=== PATIENT | male | born 1990 | race Caucasian/White ===

== ENCOUNTER 2018-10-31 14:46 | Inpatient (IN) | payer OTHER ==
[2018-10-31] VITALS (7 sets, daily range): BP systolic 92–117; BP diastolic 58–74
[~2018-10-31] VITALS: Ht 172.7 cm; Wt 43.6 kg
[2018-10-31] MEDS ORDERED: NACL 0.9% 1,500 ML IV SCH (14:49)
[2018-10-31] MEDS ORDERED: IPRATROPIUM 0.02% 0.5 MG/2.5 ML NEBU INH ONE ×2 (14:50)
[2018-10-31] MEDS ORDERED: methylPREDNISolone SS 125 MG/2 ML VIAL IVP ONE (14:50)
[2018-10-31] MEDS ORDERED: GENTAMICIN 80 MG in DEXTROSE 5% 100 ML IV ONE (14:50)
[2018-10-31] MEDS ORDERED: CLINDAMYCIN 900 MG in DEXTROSE 5% 100 ML IV ONE (14:50)
[2018-10-31] MEDS ORDERED: PIPERACILLIN/TAZOBACTAM 3.375 GM in DEXT 5% MINI-BAG PLUS 50 ML IV ONE (14:50)
[2018-10-31] MEDS ORDERED: ALBUTEROL 0.083% 2.5 MG/3 ML NEBU INH ONE ×2 (14:50)
--- NOTE | 2018-10-31 15:00 | NUR ---
28 yo male bib ems from [facility] for [place] sat on trach. Patient is aao but ventilated. PERRLA to bl eyes. Pulse ox on arrival is 94%. Patient able to verbalize commands. RR are even and tachypneic. Abd is soft and non tender. GT noted to abd. Dressing clean and no discharge. NAD. RT and er md fower by bedside.
[2018-10-31 15:23] LABS: BASOPHILS % (AUTO) 0.2 % (0.0-2.0); EOSINOPHILS # (AUTO) 0.3 K/uL (0-0.4); HEMOGLOBIN 11.3 g/dL (12.0-18.0); LYMPHOCYTES # (AUTO) 0.5 K/uL (2.0-11.5); LYMPHOCYTES % (AUTO) 4.7 % (20.5-51.1); MEAN CORPUSCULAR HEMOGLOBIN 27 pg (27-31); MEAN CORPUSCULAR HGB CONC 31 g/dL (33-37); MEAN CORPUSCULAR VOLUME 88.6 fL (80-94); MONOCYTES # (AUTO) 0.4 K/uL (0.8-1.0); MONOCYTES % (AUTO) 3.9 % (1.7-9.3); NEUTROPHILS # (AUTO) 8.5 K/uL (1.8-7.7); NEUTROPHILS % (AUTO) 88.2 % (42.2-75.2); PLATELET COUNT (AUTO) 226 K/uL (140-450); RED BLOOD CELL COUNT(AUTO) 4.17 MIL/uL (4.20-6.10); RED CELL DISTRIBUTION WIDTH 14.7 % (11.6-13.7); WHITE BLOOD COUNT (AUTO) 9.7 K/uL (4.8-10.8)
[2018-10-31] MEDS ORDERED: CLINDAMYCIN 900 MG/6 ML VIAL IV ONE (15:36)
[2018-10-31] MEDS ORDERED: PIPERACILLIN/TAZOBACTAM 3.375 GM VIAL IV ONE (15:36)
[2018-10-31] MEDS ORDERED: GENTAMICIN 80 MG/2 ML VIAL ONE (15:37)
[2018-10-31 15:39] LABS: ALBUMIN 3.4 g/dL (3.4-5.0); CREATININE 0.7 mg/dL (0.7-1.3); POTASSIUM 5.2 mmol/L (3.5-5.1); TOTAL BILIRUBIN 0.2 mg/dL (0.0-1.0)
[2018-10-31] MEDS ORDERED: CITA40TA13 GT (15:44)
[2018-10-31] MEDS ORDERED: ALPR0.252 GT (15:44)
[2018-10-31] MEDS ORDERED: SENN-73 GT (15:44)
[2018-10-31] MEDS ORDERED: BISA10SU RC (15:44)
[2018-10-31] MEDS ORDERED: MAGN400S60 GT (15:44)
[2018-10-31] MEDS ORDERED: POLY15SO48 OP (15:44)
[2018-10-31] MEDS ORDERED: ATRN INH (15:44)
[2018-10-31] MEDS ORDERED: MULT15LI1 GT (15:44)
[2018-10-31] MEDS ORDERED: LORA10TA19 GT (15:44)
[2018-10-31] MEDS ORDERED: BISO5TAB2 GT (15:44)
[2018-10-31] MEDS ORDERED: LEVA1.2523 IH (15:44)
[2018-10-31] MEDS ORDERED: NA P135N RC (15:44)
[2018-10-31] MEDS ORDERED: FAMO-90 GT (15:44)
[2018-10-31] MEDS ORDERED: ACET-2619 GT (15:44)
--- NOTE | 2018-10-31 15:45 | NUR ---
PER SPOUSE PATIENT DOES NOT TOLERATED ALBUTEROL VERY WELL DUE TO ADVERSE REACTIONS OF ANXIETY NERVOUSNESS AND INCREASED HEART PALPATATION REVIEWED WITH DR ROXANNA DALTON NO NEW ORDERS
[2018-10-31 16:10] LABS: ANION GAP 0.4 (8-16)
[2018-10-31 16:20] LABS: CARBON DIOXIDE 44.8 mmol/L (21-32)
--- NOTE | 2018-10-31 16:32 | NUR ---
rt by bedside
--- NOTE | 2018-10-31 17:15 | NUR ---
ivf running w/o difficultly. patient with no complaints. nad. will continue to monitor.
[2018-10-31] MEDS ORDERED: ONDANSETRON 4 MG/2 ML VIAL IM/IVP PRN (17:20)
[2018-10-31] MEDS ORDERED: ACETAMINOPHEN 325 MG TAB PO PRN (17:20)
[2018-10-31] MEDS ORDERED: LORazepam 2 MG/ML VIAL IM/IVP PRN (17:20)
[2018-10-31] MEDS ORDERED: MORPHINE SULFATE 2 MG/ML SYR IVP PRN (17:20)
[2018-10-31] MEDS ORDERED: DOCUSATE SODIUM 100 MG GELCAP PO PRN (17:20)
[2018-10-31] MEDS ORDERED: HYDROcodone/APAP 5/325 MG 1 TAB TAB PO PRN (17:20)
[2018-10-31 17:52] LABS: MAGNESIUM 2.1 mg/dL (1.8-2.4); PHOSPHORUS 5.8 mg/dL (2.5-4.9); THYROID STIMULATING HORMONE 1.34 uIU/mL (0.34-3.74)
[2018-10-31 18:10] LABS: PROTHROMBIN TIME 11.1 secs (10.8-13.4)
--- NOTE | 2018-10-31 18:20 | NUR ---
Patient will be admitted to care of [facility]. Admited to Tele. Will go to room ICU-1. Belongings list completed. Bedside report to David OTERO.
--- NOTE | 2018-10-31 18:23 | NUR ---
RECEIVED PT FROM ER. PT A/O X3. ABLE TO MAKE NEEDS KNOWN. SKIN DRY AND WARM TO TOUCH. TRACH TO VENT AC 20 FIO2 35%, TV 450 PEEP 5. LUNGS WHEEZING B/L. PERIPHERAL LINES ON RFA 20G AND LEFT HAND 24 G. INTACT. FLUSHED. ABDOMEN SOFT, ROUND AND NON-TENDER. ACTIVE BOWEL SOUND. BLANCHABLE REDNESS NO SACROCOCCYX AREA. SKIN INTACT. ON DIAPER, WET. REFUSED MATA CATHETER. DR. SUAREZ AWARE. KEPT HOB ELEVATED. BED IN LOW POSITION, LOCKED. WILL CONTINUE TO MONITOR.
--- NOTE | 2018-10-31 18:29 | NUR ---
PATIENT TRANSFERRED FROM ER TO ICU BED 1 VIA AMBU 100% AND PLACED BACK ON CURRENT VENT SETTING AC-20,450, +5, FIO2-35%. NO SIGNS OF RESP. DISTRESS
[2018-10-31] MEDS: ALBUTEROL SULFATE/IPRATROPIU 3 ML SOL IH SCH (19:09)
--- NOTE | 2018-10-31 19:13 | NUR ---
REPORT GIVEN TO HAND WOOD SANDER RN FOR CONTINUITY OF CARE.
--- NOTE | 2018-10-31 19:14 | NUR ---
DR. SUAREZ AND DR. BUSH AT BEDSIDE AT THIS TIME. WILL FOLLOW-UP WITH ANY NEW ORDERS.
--- NOTE | 2018-10-31 19:30 | NUR ---
RECEIVED REPORT FROM MORNING RN FOR CONTINUITY OF CARE. VS STABLE AT THIS TIME. PT AWAKE, ALERT, AND ORIENTED. ABLE TO MAKE NEEDS KNOWN. PT AFEBRILE. PT HAS AT BEDSIDE, LAKESHIA, AT THIS TIME. PERRL. LUNG SOUNDS AUSCULTATED AND WAS RHONCHI. NO SOB NOTED. TRACH TO VENT WITH SETTINGS AC20, FIO2 35%, TV 450, AND PEEP 5. S1+S2 HEARD. PULSES ARE PALPABLE IN ALL EXTREMITIES. SR TO ST ON MONITOR. DENIES CHEST PAIN. ABDOMEN ROUND, SOFT, AND NONDISTENDED. GTUBE IN PLACE. DRESSING INTACT. BS ACTIVE IN ALL QUADRANTS. PT ABLE TO FEEL URGE TO VOID. NO BM AT THIS TIME. RECEIVED PT WITH PERIPHERAL IV ACCESS ON LEFT HAND 24G AND RIGHT FOREARM 20G. RECEIVED PT WITH BOLUS RUNNING. PT'S BED AT LOWEST POSSIBLE POSITION. CALL LIGHT WITHIN REACH. WILL CONTINUE TO MONITOR PT.
[2018-10-31] MEDS ORDERED: SENNA 8.6 MG TAB GT PRN (19:35)
[2018-10-31] MEDS ORDERED: MAGNESIUM HYDROXIDE 2400 MG/30 ML UDC GT PRN (19:35)
[2018-10-31] MEDS ORDERED: BISACODYL 10 MG SUPP RC PRN (19:35)
[2018-10-31] MEDS ORDERED: SODIUM PHOSPHATE 118 ML ENEM RC PRN (19:35)
[2018-10-31] MEDS: NACL 0.9% 1,000 ML IV SCH (19:45)
[2018-10-31] MEDS: ALPRAZolam 0.25 MG TAB GT PRN (19:54)
[2018-10-31] MEDS: FAMOTIDINE 20 MG TAB GT SCH (20:50)
[2018-10-31] MEDS: acetaZOLAMIDE 250 MG TAB GT SCH (20:51)
[2018-10-31] MEDS ORDERED: acetaZOLAMIDE 250 MG TAB ONE (20:52)
--- NOTE | 2018-10-31 21:30 | NUR ---
PT STARTED ON TUBE FEEDING OF JEVITY 1.2 AT 20ML/HR PER ORDER.
--- NOTE | 2018-10-31 21:40 | NUR ---
CONDOM CATHETER PLACED ON PT PER DR. SUAREZ'S ORDER. PT TOLERATED IT WELL. SECURED IN PLACE. NO LEAKAGE NOTED.
[2018-10-31] MEDS ORDERED: CALCIUM ACETATE 667 MG TAB GT SCH (22:00)
[2018-10-31] MEDS ORDERED: METOPROLOL SUCCINATE 50 MG TABER PO SCH (22:00)
[2018-10-31] MEDS ORDERED: cefTRIAXone 1,000 MG VIAL ONE (22:53)
--- NOTE | 2018-10-31 23:15 | NUR ---
NO CHANGE IN PT'S CONDITION AT THIS TIME. , LAKESHIA, STILL AT BEDSIDE. VS STABLE. SR ON MONITOR. PT DENIES OF ANY DISCOMFORT AT THIS TIME. PT DENIES PAIN. AL SAFETY PRECAUTIONS ARE KEPT IN PLACE. CONDOM CATHETER WORKING WELL.
[2018-10-31] MEDS: SODIUM POLYSTYRENE 15 GM/60 ML UDBTL GT SCH (23:28)
[2018-11-01] VITALS (17 sets, daily range): BP systolic 95–118; BP diastolic 58–74
--- NOTE | 2018-11-01 00:54 | NUR ---
CONDOM CATH NOTED TO BE LEAKING, CHANGED TO A SIZE SMALL AND WILL OBSERVE IF THERE WILL BE LEAKAGE.
--- NOTE | 2018-11-01 02:10 | NUR ---
VS STABLE. SR ON MONITOR. NO CHANGE IN PT'S CONDITION. TRACH TO VENT WITH ADEQUATE OXYGENATION EVIDENCED BY STABLE OXYGEN SATURATION THAT IS MORE THAN 92%. PT'S REMAINS AT BEDSIDE. PT HAS ADEQUATE URINARY OUTPUT.
--- NOTE | 2018-11-01 03:40 | NUR ---
URINE SPECIMEN WAS COLLECTED AND SENT TO THE LAB. PT DOES NOT APPEAR TO BE EXPERIENCING ANY DISCOMFORT AT THIS TIME. DENIES ANY PAIN.
--- NOTE | 2018-11-01 03:50 | NUR ---
FEEDING RATE INCREASED AT 30ML/HR. CURRENTLY NO RESIDUAL NOTED.
[2018-11-01 03:54] LABS: APPEARANCE,URINE CLEAR (CLEAR); BILIRUBIN,URINE NEGATIVE (NEGATIVE); BLOOD, URINE NEGATIVE (NEGATIVE); COLOR,URINE YELLOW (YELLOW); LEUKOCYTE ESTERASE ,URINE NEGATIVE (NEGATIVE); NITRITE, URINE NEGATIVE (NEGATIVE); PH,URINE 8.5 (5.0-9.0); UGLUCOSE NEGATIVE (NEGATIVE)
--- NOTE | 2018-11-01 04:20 | NUR ---
ORAL CARE PROVIDED TO PT. NO BM NOTED AT THIS TIME. ALL SAFETY PRECAUTIONS ARE IN PLACE. BED AT LOWEST POSSIBLE POSITION. NO RESIDUAL NOTED.
[2018-11-01] MEDS: methylPREDNISolone SS 125 MG/2 ML VIAL IVP SCH ×3 (04:35→20:39)
[2018-11-01 06:40] LABS: ANION GAP 3.7 (8-16); CHOL/HDL RATIO 2.3 (1-4.5); CREATININE 0.5 mg/dL (0.7-1.3); PHOSPHORUS 3.6 mg/dL (2.5-4.9); POTASSIUM 4.7 mmol/L (3.5-5.1)
[2018-11-01] MEDS: ALBUTEROL SULFATE/IPRATROPIU 3 ML SOL IH SCH ×3 (07:12→18:56)
[2018-11-01 07:13] LABS: BASOPHILS % (AUTO) 0.1 % (0.0-2.0); HEMATOCRIT 32.5 % (36-52); HEMOGLOBIN 9.9 g/dL (12.0-18.0); LYMPHOCYTES # (AUTO) 0.6 K/uL (2.0-11.5); LYMPHOCYTES % (AUTO) 8.3 % (20.5-51.1); MEAN CORPUSCULAR HEMOGLOBIN 27 pg (27-31); MEAN CORPUSCULAR HGB CONC 31 g/dL (33-37); MEAN CORPUSCULAR VOLUME 89.5 fL (80-94); MONOCYTES # (AUTO) 0.3 K/uL (0.8-1.0); MONOCYTES % (AUTO) 4.4 % (1.7-9.3); NEUTROPHILS # (AUTO) 6.2 K/uL (1.8-7.7); NEUTROPHILS % (AUTO) 87.2 % (42.2-75.2); PLATELET COUNT (AUTO) 199 K/uL (140-450); RED BLOOD CELL COUNT(AUTO) 3.63 MIL/uL (4.20-6.10); WHITE BLOOD COUNT (AUTO) 7.1 K/uL (4.8-10.8)
--- NOTE | 2018-11-01 07:21 | NUR ---
RECEIVED TRACH PT WITH A SHILEY 5 XLT TRACH ON VENT. SETTINGS AC 20, VT 450, PEEP 5 AND FIO2 35%. PT HAS HIS EYES CLOSED BUT RESPONDS TO QUESTIONING. FAMILY MEMBER IS BEDSIDE. PT NOT IN ANY DISTRESS AT THIS TIME. VENT IS PLUGGED INTO A RED OUTLET WITH ALARMS ON AND FUNCTIONING. WILL CONTINUE TO MONITOR.
--- NOTE | 2018-11-01 07:30 | NUR ---
RECEIVED BEDSIDE REPORT FROM SCREEN ROLLER RN. PT IS LETHARGIC, ALERT AND ORIENTED. ABLE TO MAKE NEEDS KNOWN AND FOLLOW COMMANDS. SR ON MONITOR. S1 S2 HEARD. TRACH TO VENT WITH SETTINGS: AC 20, FIO2 35%, TV 450 PEEP 5. LUNGS WHEEZING BILATERALLY. PERIPHERAL IVS G24 TO L HAND AND G20 TO RFA PATENT AND INTACT. PT RECEIVING IV FLUID NS AT 60 ML/HR. ABDOMEN SOFT, NONTENDER, NON DISTENDED, GT IN PLACE. BOWEL SOUNDS ACTIVE X 4 QUADRANTS. PT RECEIVING TF JEVITY 1.2 AT 30 ML/HR. NO RESIDUALS, RATE INCREASED TO 40 ML/HR AT THIS TIME (GOAL IS 60ML/HR). CONDOM CATH IN PLACE DRAINING URINE TO GRAVITY. HOB 30 DEGREES, BED IN LOWEST POSITION LOCKED. CALL LIGHT WITHIN REACH. AT BEDSIDE. NO SIGNS OF DISTRESS NOTED AT THIS TIME. WILL CONTINUE TO MONITOR.
[2018-11-01] MEDS ORDERED: PROBIOTIC SCREEN 1 EA MISC MC PRN (07:40)
--- NOTE | 2018-11-01 07:45 | NUR ---
DR. GOEL AND RESIDENT GROUP IN TO SEE PT. WILL FOLLOW UP ON ORDERS.
--- NOTE | 2018-11-01 08:21 | NUR ---
PATIENT HAS BEEN SCREENED AND CATEGORIZED HIGH NUTRITION RISK. PATIENT WILL BE SEEN WITHIN 1-2 DAYS OF ADMISSION. 11/01/18-11/02/[address]
--- NOTE | 2018-11-01 08:55 | NUR ---
PT SEEN BY DR. HENLEY. WILL FOLLOW UP WITH ANY NEW ORDERS.
[2018-11-01] MEDS ORDERED: METOPROLOL 25 MG TAB GT SCH (09:00)
[2018-11-01] MEDS ORDERED: METOPROLOL SUCCINATE 50 MG TABER PO SCH (09:00)
[2018-11-01] MEDS: FAMOTIDINE 20 MG TAB GT SCH ×2 (09:03→20:38)
[2018-11-01] MEDS: CITALOPRAM 20 MG TAB GT SCH (09:03)
[2018-11-01] MEDS: LACTOBACILLUS RHAMNOSUS GG 1 EACH CAP PO SCH (09:03)
[2018-11-01] MEDS: acetaZOLAMIDE 250 MG TAB GT SCH ×2 (09:04→20:38)
--- NOTE | 2018-11-01 09:25 | NUR ---
BP 98/61, HR 88. HOLD LOPRESSOR PER DR. CASTANEDA.
--- NOTE | 2018-11-01 09:30 | NUR ---
MEDICATIONS ADMINISTERED ORDERED. PT TOLERATED WELL.
--- NOTE | 2018-11-01 09:39 | NUR ---
PT HAVING PHYSICAL THERAPY. FAMILY AT BEDSIDE. VSS. NO DISTRESS NOTED AT THIS TIME.
--- NOTE | 2018-11-01 11:02 | NUR ---
Electrode Turner And Finisher Note: Per Janell from [facility] , patient is on a 7 day bed hold and patient's Jessica Steven is his health care decision maker. I called and spoke with Jessica. Per Jessica, she would like patient to return to [facility] upon discharge.
--- NOTE | 2018-11-01 11:51 | NUR ---
PT PLACED ON PRVC inspTIME 0.80, VT 450, R 20, PEEP 5 AND FIO2 35% DUE TO INCREASED PEAK PRESSURES RANGING FROM LOW 50'S-MID 50'S. PT TOLERATING WELL WILL CONTINUE TO MONITOR.
[2018-11-01] MEDS: ALBUTEROL SULFATE/IPRATROPIU 3 ML SOL IH PRN (11:53)
--- NOTE | 2018-11-01 12:00 | NUR ---
VAP ORAL CARE GIVEN. REPOSITIONED FOR COMFORT. PT ABLE TO HELP WITH REPOSITIONING. VSS. WILL CONTINUE TO MONITOR.
[2018-11-01] MEDS: ALPRAZolam 0.25 MG TAB GT PRN ×3 (12:11→19:42)
[2018-11-01] MEDS: NACL 0.9% 1,000 ML IV SCH ×2 (12:12→17:15)
--- NOTE | 2018-11-01 12:49 | NUR ---
11/01/18 RD INITIAL ASSESSMENT COMPLETED PLEASE REFER TO NUTRITION ASSESSMENT UNDER CARE ACTIVITY FOR ESTIMATED NUTRITIONAL NEEDS. 1. RECOMMEND JEVITY 1.2 @ 70 ML/HR - THIS WILL PROVIDE 2016 KCALS, 93 G PROTEIN. THIS WILL MEET 96% OF ESTIMATED ENERGY NEEDS AND 100% OF ESTIMATED ENERGY NEEDS 2. RECOMMEND FLUSH [address] TO FOLLOW-UP 2-3 DAYS, HIGH RISK TAMARA PORTILLO RD
--- NOTE | 2018-11-01 13:10 | NUR ---
PT SEEN BY DR. FRANKLIN. WILL FOLLOW UP WITH NEW ORDERS.
--- NOTE | 2018-11-01 14:19 | NUR ---
PT RETURNED TO AC 20, VT 450, PEEP 5 AND FIO2 35%, DUE TO PT NOT TOLERATING PRVC PT STATING IT IS HARD TO BREATHE. WILL CONTINUE TO MONITOR.
[2018-11-01] MEDS ORDERED: DOCUSATE 100 MG/10 ML UDC GT PRN (14:54)
--- NOTE | 2018-11-01 16:00 | NUR ---
PT REFUSED ORAL CARE AT THIS TIME. FAMILY MEMBER AT BEDSIDE.
--- NOTE | 2018-11-01 16:26 | NUR ---
PEAK PRESSURES HAVE DECREASED. PT SUCTIONED OBTAINED SMALL AMOUNT OF THICK BLOODY SECRETIONS, AIRWAY IS PATENT AND TRACH IS SECURE. PT IS NOT IN ANY DISTRESS AT THIS TIME. WILL CONTINUE TO MONITOR.
--- NOTE | 2018-11-01 17:21 | NUR ---
NO CHANGE IN CONDITION AT THIS TIME. VSS. PT REFUSED PM CARE AND BED BATH. FAMILY AT BEDSIDE. SAFETY PRECAUTIONS IN PLACE. WILL CONTINUE TO MONITOR.
--- NOTE | 2018-11-01 17:49 | NUR ---
PT REMAINS ON DOCUMENTED VENT SETTINGS. PT AWAKE ALERT IN BED NOT IN ANY DISTRESS. VENT ALARMS REMAIN ON AND FUNCTIONING. TRACH REMAINS SECURE WITH A PATENT AIRWAY.
--- NOTE | 2018-11-01 19:06 | NUR ---
Received pt stable on vent support at documented settings, suctioned small amounts of thick blood tinged secretions,hhn tx given, tolerated well, no resp distress or SOB noted at this time, Shiley 5 XLT secured/patent/midline, alarms set and audible, ambu bag at bedside, vent plugged into red outlet, pulse ox on, will cont to monitor.
--- NOTE | 2018-11-01 19:18 | NUR ---
REPORT GIVEN TO LONGWALL SHEARER OPERATOR NURSE FOR CONTINUITY OF CARE. PT IS IN STABLE CONDITION.
--- NOTE | 2018-11-01 19:20 | NUR ---
RECEIVED BEDSIDE REPORT FROM MORNING SHIFT RN, FREDDIE, FOR CONTINUITY OF CARE. AFEBRILE, TEMP 98.5, AAOX4, ABLE TO RESPOND TO COMMANDS. WU=567/88, HR=96, SATING 100%, RR=19. APPEARS LETHARGIC, PT ON TRACH TO VENT, FIO2=35, ZR=299, RR=20, FLOW=30L/MIN, PEEP=5, PMAX =65. LUNG SOUND CLEAR ON UPPER/LOWER BILATERAL LOBES. GT IN TACT, TUBE FEEDING JEVITY 1.2 AT 70CC/HR.BOWEL SOUNDS ACTIVE X4, NO RESIDUAL. CONDOM CATH IN PLACE TO DRAINAGE BAG. URINE IS CLEAR/YELLOW. , LEFT HAND 24 GAUGE, SALINE FLUSHED. RIGHT FA 20 GAUGE, INFUSING NS AT 60CC/HR. SKIN IS INTACT, NORMAL IN COLOR, NO SIGNS OF EDEMA. SKIN WARM TO TOUCH. PT DENIES PAIN/NAUSEA. STANDARD/FALL RISK PRECAUTIONS MAINTAINED, HOB ELEVATED, SIDE RAILS UP X2. FAMILY MEMBER AT BEDSIDE.
--- NOTE | 2018-11-01 19:50 | NUR ---
FO=[id number], ST ON ASSISTANT FOREMAN. XANAX GIVEN PER PT REQUEST, FAMILY MEMBER AT BEDSIDE. PT REFUSES ORAL CARE AT THIS TIME.
--- NOTE | 2018-11-01 20:40 | NUR ---
, LAKESHIA AT BEDSIDE, CONSENT FORM SIGNED.
[2018-11-01] MEDS: SODIUM POLYSTYRENE 15 GM/60 ML UDBTL GT SCH (21:28)
--- NOTE | 2018-11-01 21:29 | NUR ---
CALLLED DR. SUAREZ AT 8440. UPDATED POTASSIUM = 4.7, TO HOLD KAKAYKAYXALATE PER . WILL CARRY OUT.
--- NOTE | 2018-11-01 23:20 | NUR ---
PT SLEEPING, EASY TO AROUSE. APPEARS WITHOUT DISTRESS, PT DENIES PAIN/NAUSEA. VAP ORAL CARE PROVIDED. PILLOW SUPPORT ON BONY PROMINENCES, SCDS ON BILATERAL LEGS. AT BEDSIDE.
[2018-11-02] VITALS (18 sets, daily range): BP systolic 107–132; BP diastolic 67–84
--- NOTE | 2018-11-02 01:40 | NUR ---
CALLED RT KENYA, AT BEDSIDE TO ASSESS PT/VENTILATOR ALARMS. PT IS IN STABLE CONDITION AT THIS TIME.
--- NOTE | 2018-11-02 02:58 | NUR ---
RT KENYA AT BEDSIDE, PROVIDED X1 SUCTIONING TO PT. MINIMAL SECRETIONS NOTED, VSS.
[2018-11-02] MEDS: methylPREDNISolone SS 40 MG/ML VIAL IVP SCH ×3 (04:51→20:17)
--- NOTE | 2018-11-02 05:10 | NUR ---
RT KENYA AT BEDSIDE, CHANGED TRACH DRESSING. ORAL CARE PROVIDED, DENIES PAIN AND DOES NOT WANT TO MORNING CARES AT THIS TIME.
[2018-11-02 05:32] LABS: MAGNESIUM 2.1 mg/dL (1.8-2.4); PHOSPHORUS 3.1 mg/dL (2.5-4.9)
[2018-11-02 06:02] LABS: ANION GAP 10.8 (8-16); CARBON DIOXIDE 30.5 mmol/L (21-32); CREATININE 0.5 mg/dL (0.7-1.3); POTASSIUM 4.3 mmol/L (3.5-5.1)
[2018-11-02] MEDS: ALBUTEROL SULFATE/IPRATROPIU 3 ML SOL IH SCH ×3 (06:27→19:03)
--- NOTE | 2018-11-02 06:27 | NUR ---
rec'd pt on carescape vent settings ac 20 vt 450 peep 5 fio2 35% alarms on and audible and ambu bag at side of vent and vent is plugged into red outlet, no hhn given due to pt sleeping with no signs of distress noted at this time, b\s are diminished, pt is trach with shiley xlt 5 and skin integrity is intact, snx pt small amt of white secretions, family at bedside
[2018-11-02 06:32] LABS: HEMOGLOBIN 9.9 g/dL (12.0-18.0); LYMPHOCYTES # (AUTO) 0.4 K/uL (2.0-11.5); LYMPHOCYTES % (AUTO) 6.5 % (20.5-51.1); MEAN CORPUSCULAR HEMOGLOBIN 27 pg (27-31); MEAN CORPUSCULAR HGB CONC 31 g/dL (33-37); MONOCYTES # (AUTO) 0.4 K/uL (0.8-1.0); MONOCYTES % (AUTO) 5.5 % (1.7-9.3); NEUTROPHILS # (AUTO) 5.9 K/uL (1.8-7.7); PLATELET COUNT (AUTO) 182 K/uL (140-450); RED BLOOD CELL COUNT(AUTO) 3.64 MIL/uL (4.20-6.10); WHITE BLOOD COUNT (AUTO) 6.7 K/uL (4.8-10.8)
--- NOTE | 2018-11-02 06:40 | NUR ---
DR. CASTANEDA AT BEDSIDE TO SEE PATIENT/ AT BEDSIDE.
--- NOTE | 2018-11-02 07:15 | NUR ---
PROVIDED BEDSIDE REPORT TO MORNING SHIFT RNREA, FOR CONTINUITY OF CARE.
--- NOTE | 2018-11-02 07:16 | NUR ---
RECEIVED REPORT FROM NICOLETTE OTERO
--- NOTE | 2018-11-02 08:00 | NUR ---
PATIENT AWAKE, ALERT ORIENTED. WITH TRACHEOSTOMY TO VENTILATOR FIO2 35% TIDAL VOLUME 450 AC 20 PEEP 5 SO2 99%, CLEAR BREATH SOUNDS ON ALL LUNG SOTO, SINUS RHYTHM ON MONITOR 95 BPM, WITH PEG TUBE AND CLAMPED, SOFT ABDOMEN, CONDOM CATHETER, CLEAR YELLOW URINE NOTED, SKIN INTACT, PERIPHERAL LINES GAUGE 20 RIGHT FOREARM WITH NORMAL SALINE INFUSING 60ML/HR., GAUGE 24 LEFT HAND-SALINE LOCKED AND BOTH SITES ASYMPTOMATIC
--- NOTE | 2018-11-02 08:20 | NUR ---
CALLED DR. CASTANEDA SHE SAID KEEP PATIENT NPO EXCEPT MEDICATIONS. MAY GIVE PATIENTS MEDICATIONS PER GTUBE
--- NOTE | 2018-11-02 08:45 | NUR ---
PT AT BEDSIDE SITTING PATIENT AT EDGE OF BED Addendum: 11/02/18 at 1122 by Kiah Perry RN 0845 HOURS PHYSICAL THERAPIST AT BEDSIDE
[2018-11-02] MEDS: CITALOPRAM 20 MG TAB GT SCH (08:58)
[2018-11-02] MEDS: LACTOBACILLUS RHAMNOSUS GG 1 EACH CAP PO SCH (08:58)
[2018-11-02] MEDS: FAMOTIDINE 20 MG TAB GT SCH ×2 (08:59→20:17)
[2018-11-02] MEDS: METOPROLOL SUCCINATE 50 MG TABER PO SCH (08:59)
[2018-11-02] MEDS: acetaZOLAMIDE 250 MG TAB GT SCH ×2 (09:00→20:17)
--- NOTE | 2018-11-02 09:11 | NUR ---
CM NOTE RECEIVED ORDER TO TRANSFER FOR HIGHER LEVEL OF CARE TO [facility]. SPOKE WITH DELANEY OF [facility] PH# [phone] WHO REQUESTED FOR FACESHEET, ORDER TO TRANSFER FOR HIGHER LEVEL OF CARE AND CLINICAL PACKET BE FAXED TO HER FAX# [phone]. FAXED FACESHEET, ORDER TO TRANSFER FOR HIGHER LEVEL OF CARE AND CLINICAL PACKET TO [facility], ATTN: DELANEY.
--- NOTE | 2018-11-02 09:53 | NUR ---
CM NOTE PER DELANEY OF [facility]# [phone], NO BED AVAILABLE AT THIS TIME AND THEY HAVE PATIENTS IN THEIR ER WAITING FOR BEDS. PER DELANEY, THEY MIGHT HAVE A BED TONIGHT OR TOMORROW. DR. TONYA DOLL AND SHE SAID SHE WILL SEE IF OUR HOSPITAL CAN GET THE EQUIPMENT NEEDED FOR THE PROCEDURE.
--- NOTE | 2018-11-02 13:01 | NUR ---
CM NOTE PER DR. CASTANEDA, DR. FRANKLIN WILL DO THE NEEDED PROCEDURE FOR THE PATIENT IN OUR FACILITY AND SHE HAS CANCELLED THE ORDER TO TRANSFER FOR HIGHER LEVEL OF CARE. DELANEY OF [facility] AWARE.
[2018-11-02] MEDS ORDERED: LIDOCAINE 2% 1000 MG/50 ML VIAL INJ ONE (13:59)
[2018-11-02] MEDS: ALPRAZolam 0.25 MG TAB GT PRN (14:15)
--- NOTE | 2018-11-02 16:00 | NUR ---
DR. CASTANEDA HERE AND INFORMED PATIENT THAT THE PROCEDURE HAS BEEN POSTPONED TO TOMORROW ACCORDING TO DR. FRANKLIN AND JEVITY FEEDING MAY BE STARTED
--- NOTE | 2018-11-02 17:15 | NUR ---
SPONGE BATH DONE AFTER PATIENT HAD 1 BOWEL MOVEMENT FORMED BROWN IN SMALL AMOUNT. LOTION APPLIED TO PRESSURE/BONY AREAS, OPTIFOAM APPLIED TO BLANCHABLE REDNESS IN THE SACRUM. ORAL CARE AND REPOSITIONING DONE. ZERO GASTRIC RESIDUAL AND SO FEEDING STARTED VIA GTUBE ORDERED
--- NOTE | 2018-11-02 19:10 | NUR ---
RECEIVED BEDSIDE REPORT FROM MORNING SHIFT RNREA, FOR CONTINUITY FO CARE. AFEBRILE, TEMP 98.6, KE=339/68, SATING 99%, RR=12, SY=[phone]. PT IS AWAKE, AAOX4, PERRL, ABLE TO MAKE NEEDS KNOWN. SR ON MONITOR, TRACH TO VENT. FIO2=35, CX=092, RR=20, FLOW = 30L/MIN, PEEP=5, PMAX=60. BOWEL SOUND ACTIVE X4, GTUBE IN PLACE, TUBE FEEDING JEVITY 1.2 AT 70ML/HR. LAST BM DURING AFTERNOON PREVIOUS SHIFT. LEFT HAND 24 GUAGE PIV, RIGHT FOREARM 20 GUAGE INFUSING NS AT 60CC/HR. PT JOVAN PAIN/NAUSE/NUBMNESS/TINGLING. CONDOM CATH IN PLACE TO MATA BAG, URINE IS CLEAR/YELLOW. OPTIFORM DRESSING ON SACRALCOCCYX, BLANCHABLE REDNESS PER REA OTERO. HOB ELEVATED ABOVE 30 DEG, PILLOW SUPPORT ON BONY PROMINENCES, SCDS ON BILATERAL LEGS, STANDARD, FALL, AND ASPIRATION PRECAUTIONS MAINTAINED. FAMILY AT BEDSIDE.
--- NOTE | 2018-11-02 19:11 | NUR ---
Received pt stable on vent support at documented settings, hhn tx given, tolerated well, no resp distress or SOB noted at this time, family at bedside, Shiley 5 XLT trach secured/patent/midline, alarms set and audible, ambu bag bedside, vent plugged into red outlet, cont pulse ox on, will cont to monitor.
--- NOTE | 2018-11-02 19:13 | NUR ---
REPORT GIVEN TO NIGHT RN
--- NOTE | 2018-11-02 20:10 | NUR ---
PT REFUSES VAP ORAL CARE AND REPOSITIONING AT THIS TIME.
--- NOTE | 2018-11-02 21:00 | NUR ---
AT BEDSIDE TO SEE PATIENT.
[2018-11-02] MEDS: SODIUM POLYSTYRENE 15 GM/60 ML UDBTL GT SCH (22:00)
--- NOTE | 2018-11-02 22:30 | NUR ---
SMALL BOWEL MOVEMENT, FORMED, BROWN IN COLOR. SACRAL COCCYX OPTIFORM DRESSING REMAINS INTACT. DENIES PAIN/NAUSEA. TUBE FEEDING AT 70CC/HR, NS AT 60CC/HR. AT BEDSIDE. REPOSITIONED PT IN BED, PILLOWS AND SCDS ON BILATERAL LEGS. HOB ELEVATED ABOVE 30 DEG.
[2018-11-02] MEDS: NACL 0.9% 1,000 ML IV SCH (22:40)
--- NOTE | 2018-11-02 23:26 | NUR ---
HELD KAYEXALATE DUE TO POTASSIUM WITHIN NORMAL RANGE, DR SUAREZ MADE AWARE.
[2018-11-03] VITALS (18 sets, daily range): BP systolic 94–138; BP diastolic 50–92
--- NOTE | 2018-11-03 00:01 | NUR ---
PT NPO AFTER MIDNIGHT, TUBE FEEDINGS TURNED OFF.
--- NOTE | 2018-11-03 00:30 | NUR ---
BOWEL MOVEMENT, LARGE, BROWN FORMED. PT ABLE TO ASSIST IN REPOSITIONING SELF IN BED. REFUSED BED BATH AT THIS TIME. VAP ORAL CARE PROVIDED TO PT AT BEDSIDE. TOLERATED WELL. DENIES PAIN, VSS.
--- NOTE | 2018-11-03 01:30 | NUR ---
PER DR. KIM WHO IS COVERING FOR DR. CASTANEDA. MAY RESTART TUBE FEEDING ORDERED. ICU CN AWARE. NO RESIDUALS ON ASPIRATION FROM PATIENT'S PEG TUBE. NORMAL BOWEL SOUNDS ON AUSCULTATION. JEVITY RESTARTED ORDERED Addendum: 11/03/18 at 1544 by Kiah Perry RN DISREGARD ABOVE NOTE. CHARTED ON THE WRONG TIME
--- NOTE | 2018-11-03 03:03 | NUR ---
RT KENYA AT BEDSIDE TO SEE PATIENT. PT SLEEPING, FLACC=0. AT BEDSIDE. NS AT 60CC/HR.
--- NOTE | 2018-11-03 04:35 | NUR ---
SLEEING, YET EASY TO AROUSE. PT REFUSES ORAL CARE AND BED BATH AT THIS TIME. DENIES BM.
--- NOTE | 2018-11-03 05:25 | NUR ---
PT CONTINUES TO REFUSE ORAL CARES, BED BATH, LINEN CHANGE. SPOKE WITH PT AND AT BEDSIDE REGARDING IF THEY HAD AN ADVANCE DIRECTIVE OR A "LIVING WILL." DENIES EVER HAVING HAD ONE.
--- NOTE | 2018-11-03 05:42 | NUR ---
URINE OUTPUT 1200ML, Q SHIFT. URINE IS YELLOW IN COLOR, WITHOUT SEDIMENT, NORMAL ODOR. PT DOES NOT WANT TO BE REPOSITIONED A THIS TIME, PILLOW SUPPORT PROVIDED AND OPTIFORM DRESSING ON SACRAL COCCYX REMAINS INTACT.
[2018-11-03 05:55] LABS: ANION GAP 8.6 (8-16); CARBON DIOXIDE 31.6 mmol/L (21-32); CREATININE 0.5 mg/dL (0.7-1.3); POTASSIUM 4.2 mmol/L (3.5-5.1)
[2018-11-03 05:59] LABS: HEMOGLOBIN 10.8 g/dL (12.0-18.0); LYMPHOCYTES # (AUTO) 0.5 K/uL (2.0-11.5); MAGNESIUM 2.1 mg/dL (1.8-2.4); MONOCYTES # (AUTO) 0.6 K/uL (0.8-1.0); PHOSPHORUS 3.1 mg/dL (2.5-4.9); WHITE BLOOD COUNT (AUTO) 7.1 K/uL (4.8-10.8)
[2018-11-03 06:13] LABS: EOSINOPHILS % (AUTO) 0.1 % (0.0-4.0); HEMATOCRIT 35.2 % (36-52); LYMPHOCYTES % (AUTO) 7.6 % (20.5-51.1); MEAN CORPUSCULAR HEMOGLOBIN 27 pg (27-31); MEAN CORPUSCULAR HGB CONC 31 g/dL (33-37); MEAN CORPUSCULAR VOLUME 87.5 fL (80-94); MONOCYTES % (AUTO) 7.9 % (1.7-9.3); NEUTROPHILS % (AUTO) 84.4 % (42.2-75.2); PLATELET COUNT (AUTO) 182 K/uL (140-450); RED BLOOD CELL COUNT(AUTO) 4.02 MIL/uL (4.20-6.10); RED CELL DISTRIBUTION WIDTH 15.1 % (11.6-13.7)
[2018-11-03] MEDS: ALBUTEROL SULFATE/IPRATROPIU 3 ML SOL IH SCH ×3 (06:37→19:06)
--- NOTE | 2018-11-03 06:37 | NUR ---
RECEIVED PT ON CARESCAPE ON DOCUMENTED SETTINGS, PTS TRACH SHILEY 5 XLT IS SECURE , PATENT, PT IN HF ASLEEP BS DIMINISHED , AT BEDSIDE HHN GIVEN I\L WITH 3 MG DUONEB WITH NO ADVERSE REACTIONS NOTED, BMV HOB I\L SX SCANT AMTS SECRETIONS VENT PLUGGED INTO RED OUTLET
--- NOTE | 2018-11-03 07:17 | NUR ---
PROVIDED BEDSIDE REPORT TO MORNING SHIFT RNREA, FOR CONTINUITY OF CARE.
--- NOTE | 2018-11-03 07:18 | NUR ---
REPORT RECEIVED FROM NICOLETTE RN
--- NOTE | 2018-11-03 08:00 | NUR ---
PATIENT AWAKE, ALERT ORIENTED. WITH TRACHEOSTOMY SHILEY SIZE 5.0 HOOKED TO VENTILATOR FIO2 35% TIDAL VOLUME 450 AC 20 PEEP 5 SO2 99%, CLEAR BREATH SOUNDS ON ALL LUNG SOTO, SINUS TACHYCARDIA ON MONITOR 110 BPM, WITH PEG TUBE AND CLAMPED, SOFT ABDOMEN, CONDOM CATHETER, CLEAR YELLOW URINE NOTED, SKIN INTACT, PERIPHERAL LINES GAUGE 20 RIGHT FOREARM WITH NORMAL SALINE INFUSING 60ML/HR., GAUGE 24 LEFT HAND-SALINE LOCKED AND BOTH SITES ASYMPTOMATIC. CALL RHODES WITHIN REACH. AT BEDSIDE
[2018-11-03] MEDS: methylPREDNISolone SS 40 MG/ML VIAL IVP SCH (08:31)
[2018-11-03] MEDS: CITALOPRAM 20 MG TAB GT SCH (08:31)
[2018-11-03] MEDS: acetaZOLAMIDE 250 MG TAB GT SCH ×2 (08:32→21:18)
[2018-11-03] MEDS: LACTOBACILLUS RHAMNOSUS GG 1 EACH CAP PO SCH (08:32)
[2018-11-03] MEDS: FAMOTIDINE 20 MG TAB GT SCH ×2 (08:32→21:17)
[2018-11-03] MEDS: METOPROLOL SUCCINATE 50 MG TABER PO SCH (08:33)
--- NOTE | 2018-11-03 09:00 | NUR ---
PHYSICAL THERAPIST HERE AND PATIENT ABLE TO SIT AT THE EDGE OF THE BED WITH MODERATE ASSIST AND VITAL SIGNS STABLE. RN AND THERAPIST ENCOURAGED PATIENT TO STAND WITH THE HELP OF WALKER BUT PATIENT REFUSED MANY TIMES.
[2018-11-03] MEDS ORDERED: SEVOFLURANE 250 ML BTL INH ONE (10:45)
[2018-11-03] MEDS ORDERED: BUPIVACAINE-MPF 0.25% 30 ML VIAL INJ ONE (10:49)
[2018-11-03] MEDS ORDERED: MIDAZOLAM 2 MG/2 ML VIAL ONE (10:58)
[2018-11-03] MEDS ORDERED: fentaNYL 0.05 MG/ML VIAL ONE (10:59)
--- NOTE | 2018-11-03 11:10 | NUR ---
OR TEAM HERE AND TAKEN PATIENT TO SURGERY VIA ICU BED AND FABRICATION MACHINE OPERATOR, AMBU BAGGED BY RT
--- NOTE | 2018-11-03 11:37 | NUR ---
PT RETURNED FROM SURGERY. PLACED ON CARESCAPE WITH PREVIOUS SETTINGS .PORTEX [address] SECURED
--- NOTE | 2018-11-03 11:37 | NUR ---
PATIENT BACK FROM SURGERY WITH A NEW SIZE 7.0 TRACHEOSTOMY PORTEX. SITE LOOKS CLEAN. CONNECTED TO VENTILATOR BY RT WITH SAME SETTINGS, CONNECTED PATIENT TO ICU JINGLE WRITER. OR NURSE AWA AND ANESTHESIOLOGIST AT BEDSIDE
--- NOTE | 2018-11-03 12:00 | NUR ---
PATIENT STILL DROWSY FROM THE PROCEDURE. VITAL SIGNS STABLE. WILL CONTINUE TO MONITOR.
--- NOTE | 2018-11-03 13:30 | NUR ---
PER DR. KIM WHO IS COVERING FOR DR. CASTANEDA. MAY RESTART TUBE FEEDING ORDERED. ICU CN AWARE. NO RESIDUALS ON ASPIRATION FROM PATIENT'S PEG TUBE. NORMAL BOWEL SOUNDS ON AUSCULTATION. JEVITY RESTARTED ORDERED
[2018-11-03] MEDS ORDERED: FOAM DRESSING TP PRN (14:05)
[2018-11-03] MEDS: NACL 0.9% 1,000 ML IV SCH (15:30)
--- NOTE | 2018-11-03 16:30 | NUR ---
PATIENT NOW MORE AWAKE, REMAINS CALM. VENTILATOR WAS ALARMING CIRCUIT LEAK, HIGH AND LOW TIDAL VOLUMES. PATIENT SO2 REMAINS>95% NO ORAL AND TRACHEAL SECRETIONS. RT ELIZA AWARE AND AT BEDSIDE. NOTED SOME AIR LEAKING AT LOWER PART OF TRACHEAL STOMA. DR. KIM HERE AND MADE AWARE OF THE SITUATION. CONTINUE TO MONITOR PER PHYSICIAN
--- NOTE | 2018-11-03 16:50 | NUR ---
PM CARE RENDERED, SKIN INTACT, BLANCHABLE REDNESS IN THE SACRUM STILL PRESENT WITH OPTIFOAM DRESSING. PATIENT REFUSED GOWN AND LINEN CHANGE. ORAL CARE AND REPOSITIONING DONE. PATIENT TOLERATED
--- NOTE | 2018-11-03 17:50 | NUR ---
DR. HULL AT BEDSIDE MADE AWARE OF PATIENT'S BLOOD PRESSURE TRENDS. PATIENT CURRENTLY HAVING DINNER AT THIS TIME. SITTING AT THE EDGE OF THE BED Addendum: 11/03/18 at 1835 by Kiah Perry RN DISREGARD ABOVE NOTE. WRONG PATIENT
--- NOTE | 2018-11-03 19:15 | NUR ---
REPORT GIVEN TO NIGHT RN FOR CONTINUITY OF CARE
--- NOTE | 2018-11-03 19:20 | NUR ---
RECEIVED BEDSIDE REPORT FROM MORNING NURSE. PATIENT AAO X 4 BUT NON VERBAL DUE TO TRACH TO VENT WITH SETTING AC MODE FIO2 35%, VT 450, RATE 20, PEEP 5. TOLERATED WELL. BILATERAL LUNGS SOUND DIMINISHED. NO ACUTE RESPIRATORY DISTRESS NOTED. SR TO ST ON THE MANAGER OF FINANCE. G TUBE TO FEEDING WITH JEVITY 1.2 70ML WITH H2O FLUSH 110ML Q4HR. PLACEMENT CHECKED, 20CC RESIDUAL NOTED. ACTIVE BOWEL SOUND FROM ALL 4 QUADS. SKIN IS WARM TO TOUCH AND INTACT. PERIPHERAL LINES TO LEFT HAND 24G RUNNING WITH NS 60ML/HR AND RIGHT FOREARM 20G SALINE LOCK NOTED. HOB ELEVATED 30 DEGREE, BED IN LOW POSITION. CALL LIGHT WITHIN REACH. WILL CONTINUE TO MONITOR. Addendum: 11/04/18 at 0009 by Colette Donato RN CONDOM CATH IN PLACE.
[2018-11-03] MEDS ORDERED: VANCOMYCIN PER PHARMACY MC PRN (20:30)
[2018-11-03] MEDS ORDERED: VANCOMYCIN HCL 750 MG in DEXTROSE 5% 250 ML IV ONE (20:50)
--- NOTE | 2018-11-03 21:10 | NUR ---
SPOKE WITH , STATED OK TO HOLD KAYEXALATE AND CONTACT ISOLATION ORDER FOR PRESUMED SPUTUM MRSA. WILL CONTINUE TO MONITOR. Addendum: 11/04/18 at 0009 by Colette Donato RN PATIENT REFUSED ORAL CARE.
[2018-11-03] MEDS ORDERED: VANCOMYCIN 1,000 MG VIAL ONE (21:23)
[2018-11-03] MEDS: ACETAMINOPHEN 325 MG TAB GT PRN (21:36)
--- NOTE | 2018-11-03 21:40 | NUR ---
ADMINISTERED SCHEDULED MEDICATIONS AND IV ABX AND ADMINISTERED TYLENOL FOR GENERALIZED ACHING PAIN 11/28. WILL CONTINUE TO MONITOR.
[2018-11-03] MEDS: SODIUM POLYSTYRENE 15 GM/60 ML UDBTL GT SCH (22:00)
--- NOTE | 2018-11-03 23:00 | NUR ---
PATIENT IN ASLEEP AT THIS TIME. NO ACUTE DISTRESS NOTED. WILL CONTINUE TO MONITOR.
[2018-11-04] VITALS (14 sets, daily range): BP systolic 103–132; BP diastolic 65–88
--- NOTE | 2018-11-04 02:05 | NUR ---
PATIENT IN ASLEEP, AROUSABLE TO VOICE. NO ACUTE DISTRESS NOTED. DENIES PAIN AT THIS TIME. SR ON THE MONITOR. REFUSED CHANGE HIS POSITION AT THIS TIME. WILL CONTINUE TO MONITOR.
--- NOTE | 2018-11-04 04:00 | NUR ---
PATIENT IN ASLEEP, AROUSABLE TO VOICE. NO ACUTE DISTRESS NOTED. DENIES PAIN. TOLERATED WELL WITH VENT SETTING AND TUBE FEEDING. RESIDUAL CHECKED, 30CC NOTED. WILL CONTINUE TO MONITOR. Addendum: 11/04/18 at 0641 by Colette Donato RN REFUSED POSITION CHANGE AND MORNING CARE.
--- NOTE | 2018-11-04 06:00 | NUR ---
PATIENT IN SLEEP AT THIS TIME, AROUSABLE TO NAME. NO ACUTE DISTRESS NOTED. VSS. TOLERATED WELL WITH VENT AND G TUBE FEEDING. DENIES PAIN. REFUSED POSITION CHANGE AND MORNING BATH AT THIS TIME. WILL CONTINUE TO MONITOR.
[2018-11-04 06:17] LABS: CREATININE 0.4 mg/dL (0.7-1.3); PHOSPHORUS 3.2 mg/dL (2.5-4.9)
--- NOTE | 2018-11-04 06:30 | NUR ---
DR CASTANEDA IN THE UNIT.UPDATED ON PTS PRESENT CONDITION.QUESTIONS ANSWERED.MADE AWARE PT HAS BEEDN REFUSING ORAL CARE; MORNING CARE AND REPOSITIONING
[2018-11-04 06:31] LABS: BASOPHILS % (AUTO) 0.1 % (0.0-2.0); EOSINOPHILS # (AUTO) 0.1 K/uL (0-0.4); EOSINOPHILS % (AUTO) 0.8 % (0.0-4.0); HEMATOCRIT 35.3 % (36-52); LYMPHOCYTES # (AUTO) 0.8 K/uL (2.0-11.5); LYMPHOCYTES % (AUTO) 9.5 % (20.5-51.1); MEAN CORPUSCULAR HEMOGLOBIN 27 pg (27-31); MEAN CORPUSCULAR HGB CONC 31 g/dL (33-37); MEAN CORPUSCULAR VOLUME 87.3 fL (80-94); MONOCYTES # (AUTO) 1.3 K/uL (0.8-1.0); MONOCYTES % (AUTO) 14.9 % (1.7-9.3); NEUTROPHILS # (AUTO) 6.3 K/uL (1.8-7.7); NEUTROPHILS % (AUTO) 74.7 % (42.2-75.2); PLATELET COUNT (AUTO) 180 K/uL (140-450); RED BLOOD CELL COUNT(AUTO) 4.04 MIL/uL (4.20-6.10); WHITE BLOOD COUNT (AUTO) 8.5 K/uL (4.8-10.8)
--- NOTE | 2018-11-04 06:40 | NUR ---
PATIENT REFUSED ORAL CARE X3. VSS. SR ON THE MONITOR. IN BEDSIDE. WILL CONTINUE TO MONITOR.
[2018-11-04] MEDS: ALBUTEROL SULFATE/IPRATROPIU 3 ML SOL IH SCH ×3 (07:14→19:04)
[2018-11-04] MEDS: NACL 0.9% 1,000 ML IV SCH ×2 (07:29→23:45)
--- NOTE | 2018-11-04 07:30 | NUR ---
RECEIVED BEDSIDE REPORT FROM PM NURSE. PATIENT AWAKE, ALERT,ABLE TO FOLLOW COMMANDS. NON VERBAL .BEDSIDE MONITOR SHOWS SR TO ST (92 S-102 S ) TRACH TO VENT WITH SETTING AC MODE FIO2 35%, VT 450, RATE 20, PEEP 5. BILATERAL LUNGS SOUND DIMINISHED. NO ACUTE RESPIRATORY DISTRESS NOTED. G TUBE TO FEEDING WITH JEVITY 1.2 70ML WITH H2O FLUSH 110ML Q4HR. PLACEMENT CHECKED. PERIPHERAL LINES TO LEFT HAND 24G RUNNING WITH NS 60ML/HR AND RIGHT FOREARM 20G SALINE LOCK NOTED. ACTIVE BOWEL SOUND FROM ALL 4 QUADS. SKIN IS WARM TO TOUCH AND INTACT. REDNESS TO SACRAL AREA NOTED. ENCOURAGED PT TO MOVE EVERY TWO HOURS, INTRODUCED MYSELF, POC EXPLAINED TO PT. AT BEDSIDE, HOB ELEVATED 30 DEGREE, BED IN LOW POSITION. CALL LIGHT WITHIN REACH. WILL CONTINUE TO MONITOR.
--- NOTE | 2018-11-04 07:35 | NUR ---
recived pt on vent with settings as charted breath sounds present bilat exp wheezes sxn pt with small amt off white secs trach secure ambu bag bedside vent plugged into red outlet will continue to monitor pt on vent
[2018-11-04] MEDS: FAMOTIDINE 20 MG TAB GT SCH ×2 (08:07→21:00)
[2018-11-04] MEDS: LACTOBACILLUS RHAMNOSUS GG 1 EACH CAP PO SCH (08:08)
[2018-11-04] MEDS: CITALOPRAM 20 MG TAB GT SCH (08:08)
[2018-11-04] MEDS: METOPROLOL SUCCINATE 50 MG TABER PO SCH (08:08)
[2018-11-04] MEDS: methylPREDNISolone SS 40 MG/ML VIAL IVP SCH (08:09)
--- NOTE | 2018-11-04 08:30 | NUR ---
offered pt oral care , sergio care and reposition, pt refused. at bedside, explained to pt he may have PNA if he refuse oral care. pt agreed to do it before noon.
--- NOTE | 2018-11-04 08:45 | NUR ---
P.T. NOTES PATIENT REFUSED TO HAVE P.T. IN SPITE OF SEVERAL ENCOURAGEMENTS WERE GIVEN. AT BEDSIDE AND AWARE OF HIS REFUSAL AND WAS APOLOGETIC FOR HIM NOT WANTING TO PARTICIPATE. HIS RN ANDRÉS WAS MADE AWARE. PLAN: WE'LL TRY ONE MORE TIME TOMORROW AND IF HE CONTINUES TO REFUSED, P.T. SERVICES WILL BE CANCELLED.
[2018-11-04] MEDS: VANCOMYCIN HCL 750 MG in DEXTROSE 5% 250 ML IV SCH ×2 (09:04→21:00)
[2018-11-04] MEDS: ALPRAZolam 0.25 MG TAB GT PRN (10:49)
--- NOTE | 2018-11-04 10:54 | NUR ---
xanax given as ordered. pt c/o anxiety, at bedside.
--- NOTE | 2018-11-04 14:16 | NUR ---
FAMILY AT BEDSIDE, BEDSIDE MONITOR SHOWS ST 102S, BP IN NORMAL RANGE, WILL CONTINUE TO MONITOR.
--- NOTE | 2018-11-04 15:06 | NUR ---
11/04/18 RD FOLLOW UP COMPLETED PLEASE REFER TO NUTRITION ASSESSMENT UNDER CARE ACTIVITY FOR ESTIMATED NUTRITIONAL NEEDS. RD RECOMMENDATIONS: 1. CONTINUE JEVITY 1.2 @ 70 ML/HR - THIS WILL PROVIDE 2016 KCALS, 93 G PROTEIN. THIS WILL MEET 96% OF ESTIMATED ENERGY NEEDS AND 100% OF ESTIMATED ENERGY NEEDS 2. CONTINUE FLUSH [address] TO FOLLOW-UP 2-3 DAYS, HIGH RISK TAMARA PORTILLO RD
--- NOTE | 2018-11-04 17:00 | NUR ---
TURNED AND REPOSITIONED PT. PT HAD BM, CLEANED PT. ORAL CARE GIVEN. FATHER AT BEDSIDE.
--- NOTE | 2018-11-04 17:10 | NUR ---
continued to monitor pt on vent with settings as charted breath sounds present bilat coarse sxn pt with min amt reddish secs vent pluggwed into red outlet ambubag at bedside
--- NOTE | 2018-11-04 19:11 | NUR ---
PATIENT REFUSED HHNTX. HE STATES IT MAKES HIS HEART PALPITATE
--- NOTE | 2018-11-04 19:30 | NUR ---
RECEIVED REPORT FROM MORNING RN, ANDRÉS, FOR CONTINUITY OF CARE. VS STABLE AT THIS TIME. PT ABLE TO MAKE NEEDS KNOWN AND FOLLOW COMMANDS. PT HAS FAMILY AT BEDSIDE. PERRL. DENIES ANY PAIN AT THIS TIME. LUNG SOUNDS DIMINISHED. TRACH TO VENT WITH SETTINGS: FIO2 3-%, TV 450, AC 20 AND PEEP 5. NO SIGNS OF RESPIRATORY DISTRESS NOTED. S1+S2 HEARD. SR TO ST ON MONITOR. PULSES ARE PALPABLE. ABDOMEN ROUND, SOFT AND NONDISTENDED. GTUBE IN PLACE CONNECTED TO FEEDING. NO RESIDUAL NOTED AT THIS TIME. CONDOM CATHETER IN PLACE. SCD IN PLACE. PT HAS PERIPHERAL IV ACCESS ON LEFT HAND 24G AND RIGHT FOREARM 20G. PT ON NS AT 60ML/HR. ALL SAFETY PRECAUTIONS ARE IN PLACE AT THIS TIME.
--- NOTE | 2018-11-04 20:40 | NUR ---
OFFERED ORAL CARE TO PT BUT REFUSED AT THIS TIME. PT ABLE TO SUCTION HIMSELF ORALLY. PT REFUSING TO BE REPOSITIONED WELL AND STATES HE DOES NOT NEED ANYTHING ELSE
--- NOTE | 2018-11-04 23:30 | NUR ---
NO RESIDUAL NOTED AT THIS TIME. NEW FEEDING SET IN PLACE. PT TOLERATING FEEDING WELL. ADEQUATE URINARY OUTPUT NOTED. CONDOM CATHETER STILL INTACT.
[2018-11-05] VITALS (18 sets, daily range): BP systolic 104–133; BP diastolic 60–88
--- NOTE | 2018-11-05 00:30 | NUR ---
NO CHANGE IT PT'S CONDITION AT THIS TIME. VS STABLE. SR TO ST ON MONITOR. RESPIRATIONS ARE EVEN AND UNLABORED. NO SIGNS OF SOB NOTED. PT DENIES BEING IN PAIN AT THIS TIME. PT HAS AT BEDSIDE AT THIS TIME.
--- NOTE | 2018-11-05 02:40 | NUR ---
PT STILL REFUSING TO BE REPOSITIONED AT THIS TIME. INFORMED REGARDING RISK AND BENEFITS BUT STILL REFUSES
--- NOTE | 2018-11-05 03:10 | NUR ---
PT DOES NOT APPEAR TO BE EXPERIENCING ANY DISCOMFORT AT THIS TIME. SR ON MONITOR. DENIES PAIN. ALL SAFETY PRECAUTIONS REMAINS IN PLACE.
[2018-11-05 05:58] LABS: EOSINOPHILS # (AUTO) 0.1 K/uL (0-0.4); EOSINOPHILS % (AUTO) 1.4 % (0.0-4.0); HEMATOCRIT 35.4 % (36-52); HEMOGLOBIN 11.2 g/dL (12.0-18.0); LYMPHOCYTES # (AUTO) 0.9 K/uL (2.0-11.5); LYMPHOCYTES % (AUTO) 11.5 % (20.5-51.1); MEAN CORPUSCULAR HEMOGLOBIN 27 pg (27-31); MEAN CORPUSCULAR HGB CONC 32 g/dL (33-37); MEAN CORPUSCULAR VOLUME 86.4 fL (80-94); MONOCYTES # (AUTO) 1.2 K/uL (0.8-1.0); MONOCYTES % (AUTO) 14.6 % (1.7-9.3); NEUTROPHILS # (AUTO) 5.8 K/uL (1.8-7.7); NEUTROPHILS % (AUTO) 72.5 % (42.2-75.2); PLATELET COUNT (AUTO) 187 K/uL (140-450); RED CELL DISTRIBUTION WIDTH 15.1 % (11.6-13.7)
--- NOTE | 2018-11-05 05:59 | NUR ---
OFFERED TO TURN AND REPOSITION ALONG WITH PM CARE. PT REFUSED ANYTHING TO BE DONE AT THIS TIME.
[2018-11-05 06:20] LABS: MAGNESIUM 1.9 mg/dL (1.8-2.4); PHOSPHORUS 3.1 mg/dL (2.5-4.9)
[2018-11-05] MEDS: ALBUTEROL SULFATE/IPRATROPIU 3 ML SOL IH SCH ×3 (07:09→18:49)
[2018-11-05] MEDS: ALPRAZolam 0.25 MG TAB GT PRN ×3 (07:10→23:06)
--- NOTE | 2018-11-05 07:19 | NUR ---
RECEIVED TRACH PT WITH A PORTEX 7 TRACH ON VENT. SETTINGS AC 20, VT 450, PEEP 5 AND FIO2 35%. PT IS AWAKE AND ALERT IN BED STATING HE IS ANXIOUS , NURSE BEDSIDE ADMINISTERING MEDS. IS BEDSIDE. TRACH IS SECURE WITH SUTURES STILL IN PLACE, AIRWAY IS PATENT. VENT IS PLUGGED INTO A RED OUTLET WITH ALARMS ON AND FUNCTIONING. WILL CONTINUE TO MONITOR.
[2018-11-05 07:23] LABS: ANION GAP 4.2 (8-16); CARBON DIOXIDE 35.6 mmol/L (21-32); CREATININE 0.4 mg/dL (0.7-1.3); POTASSIUM 3.8 mmol/L (3.5-5.1)
--- NOTE | 2018-11-05 07:30 | NUR ---
RECEIVED PATIENT ON BED AT THE BEDSIDE.TRACHE TO VENT WITH VENT SETTING FIO2=35 PERCENT,AC=20,PEEP=5,QS=518.NO CO PAIN NOR ANY DISCOMFORT.GTUBE WITH FEEDING JEVITY AT 70 ML/H.PT REFUSED TO BE TURNED,REFUSED ORAL CARE .PER LET HIM REST.
--- NOTE | 2018-11-05 07:40 | NUR ---
DR GOEL MADE ROUNDS AND UPDATED ABOUT PTS CONDITION ESPECIALLY REFUSAL TO TURN,SUCTION , ORAL CARE AND PHYSICAL THERAPIST PER RN LAST NIGHT .MD TALKED TO .UNABLE TO ASSESS SKIN AT THE BACK BECAUSE SAID DONT TURN PT IS SLEEPING LET HIM REST.TAUGHT THE IMPORTANCE OF TURNING ESPECIALLY TO PREVENT BEDSORE. VERBALIZED UNDERSTANDING.PT IS SLEEPING RIGHT NOW.
--- NOTE | 2018-11-05 08:00 | NUR ---
STATED DON'T TURN PATIENT .LET HIM SLEEP ,DON'T DO ORAL CARE .SHE JUST TOOK XANAX.INSTRUCTED THE IMPORTANCE OF TURNING ,ORAL CARE BUT REFUSED. VERBALIZED UNDERSTANDING
[2018-11-05] MEDS: METOPROLOL SUCCINATE 50 MG TABER PO SCH (09:33)
[2018-11-05] MEDS: FAMOTIDINE 20 MG TAB GT SCH ×2 (09:33→20:40)
[2018-11-05] MEDS: CITALOPRAM 20 MG TAB GT SCH (09:33)
[2018-11-05] MEDS: LACTOBACILLUS RHAMNOSUS GG 1 EACH CAP PO SCH (09:33)
[2018-11-05] MEDS: methylPREDNISolone SS 40 MG/ML VIAL IVP SCH (09:34)
--- NOTE | 2018-11-05 10:00 | NUR ---
PATIENT REFUSED THE FOLLOWING-REFUSED TO TURN ,ORAL CARE,TRACHE CARE.INSTRUCTED PATIENT THE IMPORTANCE OF TURNING TO PREVENT BEDSORE BUT PATIENT REFUSED TO TURN. AT THE BEDSIDE AND AWARE PATIENT REFUSED TO TURN.PT ALLOWED TO CHANGE GAUZE AT TRACHE SITE BUT REFUSED TO CLEAN.NO BLEEDING NOTED AT SITE BUT ONLY OLD BLOOD. Addendum: 11/05/18 at 1117 by Elena Mi RN RN SUTURES INTACT NO SIGNS OF INFECTION.
--- NOTE | 2018-11-05 12:00 | NUR ---
PT REFUSED TO BE TURNED BUT AGREED PILLOW TO BE REMOVED SO HE CAN BE ON BACK.PT REFUSED FOR SKIN TO BE ASSESSED ESPECIALLY AT THE BACK.INSTRUCTED PATIENT WITH AT THE BEDSIDE THE IMPORTANCE OF TURNING TO PREVENT BEDSORE.PT VERBALIZED UNDERSTANDING AND STILL DO NOT WANT TO BE TURNED.
--- NOTE | 2018-11-05 12:44 | NUR ---
CM NOTE FAXED CLINICAL PACKET INCLUDING MICROS TO [facility]: [place]
--- NOTE | 2018-11-05 13:54 | NUR ---
PT IN BED WATCHING TV NOT IN ANY DISTRESS. FAMILY IS BEDSIDE. WILL CONTINUE TO MONITOR.
--- NOTE | 2018-11-05 13:56 | NUR ---
FIO2 TITRATED TO 30%. PT NOT SOB AND NOT IN ANY DISTRESS AT THIS TIME. SPO2 98%. WILL CONTINUE TO MONITOR.
--- NOTE | 2018-11-05 14:00 | NUR ---
PHYSICAL THERAPIST HERE AND PER PHYSICAL THERAPIST PT REFUSED TO PARTICIPATE.PT ALSO REFUSED TO BE REPOSITIONED AND TURNED.INSTRUCTED THE IMPORTANCE OF TURNING TO PREVENT BEDSORE BUT PATIENT STILL REFUSED. AT THE BEDSIDE.
--- NOTE | 2018-11-05 14:06 | NUR ---
PT NOTE 1255 CHART REVIEWED AND CLEARED FOR PT TX; REFUSED PARTICIPATION WITH PT DESPITE OF EDUCATION AND ENCOURAGEMENT, SPOUSE PRESENT IN ROOM. DC PT SERVICES, UNABLE TO PROGRESS TX DUE TO POOR PARTICIPATION. RN NOTIFIED.
--- NOTE | 2018-11-05 15:04 | NUR ---
Pt had a large soft brown bowel movement and asked to be cleaned.Cleaned patient and did skin assessment.Bilateral buttocks and sacral area with blanchable redness.Bilateral heels blanchable redness.Instructed patient to turn and reposition to prevent skin breakdown.pt verbalized understanding.
--- NOTE | 2018-11-05 15:30 | NUR ---
Pt no longer anxious.
--- NOTE | 2018-11-05 16:00 | NUR ---
Patient refused oral care .Instructed the importance of oral care to prevent ventillated associated pneumonia.Pt refused turning.Instructed the importance of turning to prevent bedsore but pt still refused.Pt suction himself orally. .Pt verbalized understanding.
--- NOTE | 2018-11-05 17:25 | NUR ---
PT REMAINS ON DOCUMENTED VENT SETTINGS. PT NOT IN ANY DISTRESS AT THIS TIME. VENT ALARMS REMAIN ON AND FUNCTIONING. TRACH REMAINS SECURE WITH A PATENT AIRWAY.
--- NOTE | 2018-11-05 18:49 | NUR ---
RECEIVED TRACH PT WITH A PORTEX 7 FENESTRATED TRACH ON VENT SETTINGS AC 20, VT 450, PEEP 5 AND FIO2 30%. PT IS AWAKE AND APATHETIC IN BED WATCHING TV. PATIENT REFUSED TREATMENT AT THIS TIME AND REFUSED SUCTIONING, STATING HE HAD NO PHLEGM. NURSE AT BEDSIDE. TRACH IS SECURE WITH SUTURES STILL IN PLACE. AIRWAY IS PATENT AND SECURE. VENT IS PLUGGED INTO A RED OUTLET WITH ALARMS ON AND FUNCTIONING. AMBU BAG AT BEDSIDE. WILL CONTINUE TO MONITOR.
--- NOTE | 2018-11-05 19:00 | NUR ---
PT AGREED TO BE TURNED TO LEFT SIDE PT HAD A LARGE BROWN SOFT BOWEL.PT AGREED ORAL CARE.
--- NOTE | 2018-11-05 19:20 | NUR ---
RECEIVED BEDSIDE REPORT FROM MORNING NURSE. PATIENT AAO X 4 BUT NON VERBAL DUE TO TRACH TO VENT WITH SETTING AC MODE FIO2 30%, VT 450, RATE 20, PEEP 5. TOLERATED WELL. BILATERAL LUNGS SOUND DIMINISHED. NO ACUTE RESPIRATORY DISTRESS NOTED. ST ON THE LAYBOY TENDER WITH HR 105. G TUBE TO FEEDING WITH JEVITY 1.2 70ML WITH H2O FLUSH 110ML Q4HR. PLACEMENT CHECKED, 10CC RESIDUAL NOTED. ACTIVE BOWEL SOUND FROM ALL [address] CONDOM CATH IN PLACE WITH DRAINING CLEAR YELLOW URINE NOTED. SKIN IS WARM TO TOUCH AND INTACT. PERIPHERAL LINES TO LEFT HAND 24G RUNNING WITH NS 60ML/HR AND RIGHT FOREARM 20G SALINE LOCK NOTED. HOB ELEVATED 30 DEGREE, BED IN LOW POSITION. CALL LIGHT WITHIN REACH. WILL CONTINUE TO MONITOR.
--- NOTE | 2018-11-05 19:20 | NUR ---
REPORT GIVEN TO LORY FOR CONTINUITY OF CARE.
[2018-11-05] MEDS: NACL 0.9% 1,000 ML IV SCH (20:40)
--- NOTE | 2018-11-05 20:45 | NUR ---
ADMINISTERED SCHEDULED MED ORDERED. PATIENT REFUSED REPOSITIONING AND ORAL CARE AT THIS TIME. NO ACUTE DISTRESS NOTED. VSS WITH SR ON THE MONITOR. TOLERATED WELL WITH VENT AND FEEDING. WILL CONTINUE TO MONITOR.
--- NOTE | 2018-11-05 23:10 | NUR ---
ADMINISTERED PRN XANAX DUE TO PATIENT REQUESTED. PT REFUSED REPOSITIONING AND ORAL CARE. PATIENT DID REPOSITIONING BY SELF. WILL CONTINUE TO MONITOR.
[2018-11-06] VITALS: BP 131/87
--- NOTE | 2018-11-06 | NUR ---
PATIENT REFUSED ORAL CARE AND REPOSITIONING. DENIES PAIN OR DISCOMFORT AT THIS TIME. TOLERATED WELL WITH VENT AND FEEDING. WILL CONTINUE TO MONITOR.
--- NOTE | 2018-11-06 02:00 | NUR ---
PATIENT AWAKE, RESTING IN BED CALMLY. REFUSED POSITION CHANGING AND OFFERED AGAIN ORAL CARE BUT PT STILL REFUSED AT THIS TIME. WILL CONTINUE TO MONITOR.
[2018-11-06] MEDS: ALPRAZolam 0.25 MG TAB GT PRN ×2 (03:52→09:04)
[2018-11-06 04:00] VITALS: BP 125/80
--- NOTE | 2018-11-06 04:00 | NUR ---
ADMINISTERED PRN ANTIANXIETY MED, PATIENT FEELS RESTLESSNESS. DENIES PAIN. OFFERED POSITION CHANGING AND ORAL CARE, HE REFUSED. WILL CONTINUE TO MONITOR.
[2018-11-06] MEDS: ALBUTEROL SULFATE/IPRATROPIU 3 ML SOL IH PRN (05:08)
[2018-11-06] MEDS: ACETAMINOPHEN 325 MG TAB GT PRN (05:30)
--- NOTE | 2018-11-06 06:00 | NUR ---
PATIENT REFUSED REPOSITIONING AND ORAL CARE. WILL CONTINUE TO MONITOR.
[2018-11-06 06:30] VITALS: BP 142/82
[2018-11-06] MEDS: ALBUTEROL SULFATE/IPRATROPIU 3 ML SOL IH SCH (06:30)
--- NOTE | 2018-11-06 06:30 | NUR ---
REC'D PT ON [employer] VENT SETTINGS AC20 VT450 PEEP 5 FIO2 35% ALARMS ON AND AUDIBLE AND AMBU BAG AT SIDE OF VENTILATOR AND VENT IS PLUGGED INTO RED OUTLET, NO HHN GIVEN DUE TO PT SLEEPING WITH NO SIGNS OF DISTRESS NOTED AT THIS TIME B\S ARE DIMINISHED BILATERALLY, NO SXN NEEDED AIRWAY IS PATENT PT IS TRACH WITH PORTEX 7 FEN AND SKIN INTEGRITY INTACT. AT BEDSIDE
--- NOTE | 2018-11-06 06:40 | NUR ---
SPOKE WITH DR. SOLIMAN THAT PATIENT REQUEST XANAX, RECEIVED XANAX ONE TIME DOSE.
[2018-11-06] MEDS ORDERED: ALPRAZolam 0.25 MG TAB GT SCH (07:00)
--- NOTE | 2018-11-06 07:07 | NUR ---
RECEIVED PATIENT FROM DELIVERY ASSOCIATE RN, MARGARETH, FOR CONTINUITY OF CARE. PATIENT IS AAOX4, ABLE TO MAKE NEEDS KNOWN AND FOLLOWS SIMPLE COMMANDS. PATIENT SKIN IS WARM AND DRY, HAS REDNESS TO BUTTOCKS, HE HAS PERIPHERAL IV SITE TO L HAND, 24 GAUGE, AND R FOREARM, 20 GAUGE, BOTH SITES ARE ASYMPTOMATIC AND PATENT. PATIENT IS AFEBRILE, SB ON MONITOR, DENIES PAIN. HE HAS TRACH TO VENT, SETTINGS ARE AC RATE 20, FIO2 35, TV 450, PEEP 5, BREATHING IS EVEN AND UNLABORED. PATIENT HAS GTUBE IN PLACE TO TUBE FEEDING AT 70 ML/HR WITH WATER FLUSH 110 Q4H. HE HAS A CONDOM CATHETER IN PLACE. HOB IS 30 DEGREES, SAFETY ALARMS AND PRECAUTIONS ASSESSED AND ENFORCED. CALL LIGHT WITHIN REACH. NO SIGNS OF DISTRESS NOTED.WILL CONTINUE TO MONITOR
--- NOTE | 2018-11-06 07:13 | NUR ---
REPORT GIVEN TO MORNING NURSE.
[2018-11-06 07:52] VITALS: BP 140/75
[2018-11-06 08:00] VITALS: BP 112/58
[2018-11-06] MEDS: CITALOPRAM 20 MG TAB GT SCH (08:21)
[2018-11-06] MEDS: methylPREDNISolone SS 40 MG/ML VIAL IVP SCH (08:23)
[2018-11-06] MEDS: FAMOTIDINE 20 MG TAB GT SCH (08:23)
[2018-11-06] MEDS: METOPROLOL SUCCINATE 50 MG TABER PO SCH (08:23)
[2018-11-06] MEDS: LACTOBACILLUS RHAMNOSUS GG 1 EACH CAP PO SCH (08:23)
[2018-11-06] MEDS: NACL 0.9% 1,000 ML IV SCH (08:24)
--- NOTE | 2018-11-06 08:32 | NUR ---
DR. MILLS IN TO SEE PATIENT, AWARE THAT PATIENT WILL BE DISCHARGED TODAY. WILL FOLLOW UP WITH ANY ORDERS.
[2018-11-06] MEDS ORDERED: FOAM DRESSING TP SCH (09:00)
--- NOTE | 2018-11-06 09:01 | NUR ---
DR. HENLEY IN TO SEE PATIENT, AGREES THAT [place] [facility] [place]
[2018-11-06 09:13] VITALS: BP 141/93
--- NOTE | 2018-11-06 09:59 | NUR ---
GAVE REPORT TO RN AT [facility] [place] [place] FOR CONTINUITY OF CARE, AWARE THAT PATIENT WILL BE PICKED UP AT 1030.
--- NOTE | 2018-11-06 10:26 | NUR ---
PATIENT CLEANED AND REPOSITIONED, REMOVED BOTH PERIPHERAL IV SITES, CANNULA INTACT, APPLIED PRESSURE TO BOTH SITES AND COVERED WITH GAUZE AND TAPE. REMOVED CONDOM CATHETER, 400ML OUTPUT. PATIENT TOLERATED WELL. NO SIGNS OF DISTRESS NOTED. WILL CONTINUE TO MONITOR
--- NOTE | 2018-11-06 10:40 | NUR ---
[facility] IS HERE FOR PICKUP. NO SIGNS OF DISTRESS AT THIS TIME
--- NOTE | 2018-11-06 10:50 | NUR ---
PATIENT HAS BEEN DISCHARGED WITH [facility], DISCHARGE PAPERWORK SIGNED BY AND SENT WITH [facility]. NO SIGNS OF DISTRESS NOTED. WILL BE GOING TO [facility] ROOM [facility] BED A
== END 2018-11-06 10:50 | DRG 207 ==
LOC: MED 14:46 → MIC 17:26
PROVIDERS: ADMIT General Practice; ATTEND General Practice
PROC: 5A1955Z Respiratory Ventilation, Greater than 96 Consecutive Hours (ICD-10-PCS; principal; 2018-10-31)
PROC: 0B21XFZ Change Tracheostomy Device in Trachea, External Approach (ICD-10-PCS; 2018-11-03)
DX: J96.22 Acute and chronic respiratory failure with hypercapnia (principal); E44.1 Mild protein-calorie malnutrition; Z68.1 Body mass index [BMI] 19.9 or less, adult; D47.Z2 Castleman disease; E87.2 Acidosis; Z99.11 Dependence on respirator [ventilator] status; J98.11 Atelectasis; E87.0 Hyperosmolality and hypernatremia; R13.10 Dysphagia, unspecified; J96.21 Acute and chronic respiratory failure with hypoxia; E87.5 Hyperkalemia; E83.39 Other disorders of phosphorus metabolism; Z93.0 Tracheostomy status; Z87.01 Personal history of pneumonia (recurrent); Z93.1 Gastrostomy status; F41.9 Anxiety disorder, unspecified; K59.09 Other constipation; F32.9 Major depressive disorder, single episode, unspecified; J42 Unspecified chronic bronchitis; E86.0 Dehydration; E87.8 Other disorders of electrolyte and fluid balance, not elsewhere classified; Z22.322 Carrier or suspected carrier of Methicillin resistant Staphylococcus aureus
CPT/HCPCS: 36415; 36600; 71045; 80048; 80053; 80202; 81003; 82150; 82803; 83036; 83605; 83690; 83735; 83880; 84100; 84443; 84484; 85025; 85610; 85730; 87040; 87070; 87081; 87186; 87205; 87804; 89220; 93005; 94002; 94003; 94640; 96365; 96367; 96375; 97110; 97530; 99285; J0696; J1580; J2001; J2250; J2543; J2920; J2930; J3010; J3370; J3490; J7030; J7060; J7613; J7620; J7644; Q0092